=== PATIENT | male | born 1945 | race Caucasian/White ===

== ENCOUNTER 2022-01-05 00:25 | Emergency (ER) | payer MEDICARE, OTHER, SELFPAY ==
[2022-01-05] VITALS (17 sets, daily range): BP systolic 131–233; BP diastolic 45–123; PULSE 69–113; RESP 13–19; TEMP 36.7; O2SAT 94–100
--- NOTE | ~2022-01-05 | XR_ITS ---
EXAMINATION: XR sacrum coccyx min 2V INDICATION: Pain after fall TECHNIQUE: Three views of the sacrum and coccyx are obtained. COMPARISON: None available FINDINGS: Bone alignment is normal. There is no fracture. There is mild osteoarthritis of the hips. S urgical clips are noted in the pelvis. There is calcified atherosclerosis. IMPRESSION: 1. No acute osseous abnormality. Reviewed, dictated and finalized at location A.
--- NOTE | ~2022-01-05 | CT_ITS ---
EXAMINATION: CT cervical spine wo con DATE: 01/05/2022 01:51 INDICATION: Head injury TECHNIQUE: Computed tomography (CT) of the cervical spine was performed without intravenous contrast. The dose-length product (DLP) was 303.42 mGy-cm. Automated exposure control and iterative reconstruc tion technique were employed. COMPARISON: None FINDINGS: There are 4 mm of anterolisthesis of C4 on C5. There is severe loss of intervertebral disc space height at C5-6, C6-7, and C7-T1. The vertebral body heights are normal. The odontoid is intact. No definite fracture is identified. Small degenerative osteophytes project from the anterior endplat es of multiple vertebral bodies. IMPRESSION: 1. Severe cervical spondylosis without definite fracture identified. Reviewed, dictated and finalized at location A.
--- NOTE | ~2022-01-05 | XR_ITS ---
EXAMINATION: XR chest 2V DATE: 01/05/2022 01:40 INDICATION: Chest pain after fall TECHNIQUE: PA and lateral views of the chest are obtained. COMPARISON: None available FINDINGS: The lungs are free of acute opacities. There is no pleural effusion or pneumothorax. There are changes of prior cardiac valve surgery. The heart size is normal. There is moderate thoracic spon dylosis. IMPRESSION: 1. No acute cardiopulmonary abnormality. Reviewed, dictated and finalized at location A.
--- NOTE | ~2022-01-05 | XR_ITS ---
EXAMINATION: XR hip BI 2V w AP pelvis DATE: 01/05/2022 01:41 INDICATION: Pain after fall TECHNIQUE: AP view the pelvis and two views of each hip were obtained. COMPARISON: None. FINDINGS: Bone alignment is normal. There is no fracture. There is mild osteoarthritis of the hips. S urgical clips are noted in the pelvis. IMPRESSION: 1. Mild osteoarthritis without acute osseous abnormality. Reviewed, dictated and finalized at location A.
--- NOTE | ~2022-01-05 | CT_ITS ---
EXAMINATION: CT brain wo con INDICATION: Head injury COMPARISON: None TECHNIQUE: Standard unenhanced head CT. The dose-length product (DLP) was 681.00 mGy-cm. The mA was a djusted according to patient size. Iterative reconstruction technique was employed. FINDINGS: There is a right frontal scalp hematoma. There is an acute right subdural hematoma measurin g up to 1.3 cm in thickness. There are are 6 mm of [id number] midline shift with mild mass effect on the right lateral ventricle. There is no acute intraparenchymal hemorrhage. No evidence of mass le saloni. No evidence of acute infarction. There is mild periventricular and subcortical hypodensity prob ably related to small vessel ischemic disease. There is mild prominence of the sulci and ventricles r elated to cerebral atrophy. Intracranial calcified cerebral atherosclerosis is noted. The orbits and soft tissues are unremarkable. The visualized sinuses and mastoid air cells are well aerated. IMPRESSION: 1. Acute right subdural hematoma with 6 mm of [id number] midline shift. 2. Right frontal scalp hematoma. Reviewed, dictated and finalized at location A. IMPRESSION: 1. Acute right subdural hematoma with 6 mm of [id number] midline shift. 2. Right frontal scalp hematoma.
--- NOTE | 2022-01-05 00:41 | ED.HEATRA ---
HPI - Head Injury General Chief complaint: Head Injury Stated complaint: FALL, HEAD INJURY Time Seen by Provider: 01/05/22 00:31 Source: patient and EMS Mode of arrival: EMS Limitations: dementia History of Present Illness HPI Narrative: This is a 76 year old male that presents to the ER after a ground level fall today with head injury. Reportedly staff at his facility heard a thud in his room and found him on the ground. Patient does not remember incident and is unsure what caused him to fall. Patient has a hematoma to the forehead and reports some neck pain. Otherwise has no current complaints. Denies chest pain, shortness of breath, vision changes, vomiting, or focal numbness or weakness. Related Data Allergies Allergy/AdvReac Type Severity Reaction Status Date / Time No Known Allergies Allergy Verified 01/05/22 02:38 Review of Systems Review of Systems: CONSTITUTIONAL: Denies fever EYES: Denies visual changes CARDIOVASCULAR: Denies chest pain RESPIRATORY: Denies dyspnea. GASTROINTESTINAL: Denies vomiting MUSCULOSKELETAL: Reports joint pain and myalgia. Denies back pain NEUROLOGIC: Denies numbness, or weakness. All systems reviewed & are unremarkable except as noted in HPI and below PMFSH Past Medical History Medical History (Updated 01/05/22 @ 02:34 by Cecelia Beyer PA-C) History of dementia History of diabetes mellitus History of hyperlipidemia History of hypertension Social History Social History (Updated 01/05/22 @ 00:44 by Cecelia Beyer PA-C) Substance use: never Exam Narrative: GENERAL: Well-appearing, well-nourished, and in no acute distress. HEAD: Normocephalic. Large hematoma to the right side of the forehead EYES: PERRLA and EOMI. ENT: Nares clear, no rhinorrhea or epistaxis. Mucous membranes moist. Oropharynx without tonsillar hypertrophy exudate or other lesions. Bilateral TMs pearly sainz non-bulging NECK: Supple. No adenopathy or masses. C-collar in place CHEST: Clear to auscultation. No respiratory distress. No wheezes rales or rhonchi HEART: Regular rate and rhythm. No murmur heard. Normal peripheral pulses. ABDOMEN: Soft, nontender, nondistended, normal active bowel sounds. BACK: No midline spinal tenderness. Bruising noted over the buttocks EXTREMITIES: Normal range of motion. No edema or obvious deformity. SKIN: Warm, dry, no rash. NEURO: No focal deficits. Alert and oriented x2. PSYCH: Normal mood and affect Course Consultations Consultation #1: Spoke with Dr. Fisher, about patient and workup, [facility] ER physician. Patient will be given a dose of Keppra and Kcentra. Maintain systolic blood pressure less than 140. Date: 01/05/22 Time: 02:30 Vital Signs Vital signs: Vital Signs Temperature 98.0 F 01/05/22 00:26 Pulse Rate 97 01/05/22 00:26 Respiratory Rate 16 01/05/22 00:26 Blood Pressure 165/94 H 01/05/22 00:26 Pulse Oximetry 98 01/05/22 00:26 Temperature 98.0 F 01/05/22 00:26 Pulse Rate 82 01/05/22 03:07 Respiratory Rate 14 01/05/22 02:25 Blood Pressure 138/71 01/05/22 03:07 Pulse Oximetry 97 01/05/22 02:25 MDM - Head Injury MDM Narrative Medical decision making narrative: Patient presents to the ER after a ground level fall today from [place] with head injury. Patient is on Eliquis. Patient is neurologically intact and at his baseline. CT scan of the brain shows a right hemispheric subdural hemorrhagic collection measuring up to 13 mm in diameter. The collection does extend anteriorly and along the anterior parafalcine region. There is mass-effect on the right hemisphere with approximately 3 mm right to left midline shift and partial effacement of the right lateral ventricle. CT scan of the cervical spine shows a subtle inferior avulsion injury involving the left C4 facet. Patient was updated on case findings. Spoke with Dr. Fisher, about patient and workup, [facility] ER physician. Patient will be given a dose of Keppra and Kcentra. Main
--- NOTE | 2022-01-05 00:50 | PC.NURSE ---
pt. to XR
[2022-01-05 02:11] LABS: Basophils Percent Auto 0.5 % (0.2-1.2); Eosinophils Percent Auto 0.7 % (0-4.4); Hematocrit 30.7 % (42.0-52.0); Hemoglobin 10.4 g/dL (14.0-18.0); Immature Granulocyte Absolute 0.01 K/mm3 (0.00-0.031); Immature Granulocyte Percent A 0.2 % (0-0.5); Lymphocytes Absolute Auto 0.67 K/mm3 (0.9-3.2); Lymphocytes Percent Auto 15.8 % (18.3-44.2); Mean Corpuscular HGB Conc 33.9 g/dl (32-36); Mean Corpuscular Hemoglobin 34.1 pg (26-34); Mean Corpuscular Volume 100.7 fl (80-100); Mean Platelet Volume 8.9 fl (7.4-10.4); Monocytes Absolute Auto 0.3 K/mm3 (0.1-0.6); Monocytes Percent Auto 6.8 % (2.6-8.5); Neutrophils Absolute Auto 3.2 K/mm3 (1.3-6.7); Platelet Count Result 129 k/mm3 (150-375); Red Blood Count 3.05 M/mm3 (4.6-6.20); Red Cell Distribution Width 12.4 % (11.5-14.5); White Blood Count 4.3 K/mm3 (4.5-10.0)
[2022-01-05 02:12] LABS: Appearance Urine Clear (Clear); Bilirubin Urine Negative (Negative); Color Urine Yellow (Yellow); Glucose Urine UA Negative (Negative); Ketones Urine Negative (Negative); Leukocyte Esterase Ur Negative LEU/UL (Negative); Nitrate Urine Negative (Negative); Protein Urine 1+ mg/dL (Negative); Specific Grav Ur 1.015 (1.001-1.035); Urobilinogen Urine 0.2 mg/dL (<2.0)
[2022-01-05 02:21] LABS: Alanine Aminotransferase 25 U/L (4-50); Albumin Level 3.7 g/dL (3.5-5.1); Alkaline Phosphatase 107 U/L (38-126); Anion Gap 5 mmol/L (8-16); Aspartate Amino Transferase 42 U/L (17-59); Bilirubin,Total 1.1 mg/dL (0.2-1.3); Blood Urea Nitrogen 30 mg/dL (9-20); Calcium 8.5 mg/dL (8.4-10.2); Carbon Dioxide 29 mmol/L (22-30); Chloride 103 mmol/L (98-107); Estimated Glomerular Filt Rate 49; Glucose 144 mg/dL (65-110); Potassium 4.6 mmol/L (3.4-5.0); Sodium 137 mmol/L (137-145)
[2022-01-05] MEDS: LABETALOL HCL INJ 100 MG/20 ML VIAL 20 MG IV PUSH (02:23)
[2022-01-05 02:25] LABS: RBC Urine 0-2 /hpf (0-2); Squamous Epithelial Cell Urine Rare /hpf (Few); WBC Urine 0-3 /hpf
[2022-01-05 02:27] LABS: Add Urine Microscopic? YES; Blood Urine Trace (Negative)
[2022-01-05 02:31] LABS: INR 1.2; Prothrombin Time 15.1 Seconds (11.1-14.7)
[2022-01-05 02:32] LABS: Partial Thromboplastin Time 29.3 SECONDS (22.3-36.8)
[2022-01-05] MEDS: ONDANSETRON INJ 4 MG/2 ML VIAL IV PUSH (02:34)
[2022-01-05] MEDS: levETIRAcetam 1000MG/NACL100ML 1,000 MG/100 ML BAG 400 MG IVPB (02:37)
[2022-01-05] MEDS: niCARdipine 20 MG/200 ML 20 MG/200 ML BAG 50 MG IV CONT (02:49)
--- NOTE | 2022-01-05 02:57 | PC.NURSE ---
@0231 called [facility] to request transport, light and sirens. ETA is a minimum 45 minutes to 1 hour. @ 0235 called [facility] to request transport. declined due to weather. @ 0243 called [facility] to request transport. declined @0245 called [facility] to request transport. declined @0248 called [facility] to request transport. ETA 15-20 minutes. @0252 cancelled [facility].
--- NOTE | 2022-01-05 02:57 | PC.NURSE ---
PT'S BROTHER CAREN NOTIFIED OF PT'S TRANSFER TO [facility]. CAREN GIVEN ADDRESS AND PHONE FOR [facility] ED. UNABLE TO REACH IRINEO BURRIS. VOICEMAIL LEFT FOR [facility].
== END 2022-01-05 03:20 | disposition short-term general hospital (02) ==
PROVIDERS: Physician Assistant; Emergency Provider Emergency Medicine
DX: S06.5X9A Traumatic subdural hemorrhage with loss of consciousness of unspecified duration, initial encounter (principal); F03.90 Unspecified dementia, unspecified severity, without behavioral disturbance, psychotic disturbance, mood disturbance, and anxiety; E11.9 Type 2 diabetes mellitus without complications; E78.5 Hyperlipidemia, unspecified; I10 Essential (primary) hypertension; Z79.01 Long term (current) use of anticoagulants; M16.0 Bilateral primary osteoarthritis of hip; M47.812 Spondylosis without myelopathy or radiculopathy, cervical region; W19.XXXA Unspecified fall, initial encounter
CPT/HCPCS: 36415; 70450; 71046; 72125; 72220; 73521; 80053; 81001; 85025; 85610; 85730; 96365; 96375; 99291; J0131; J1953; J2405; J7168